=== PATIENT | female | born 1970 | race Caucasian/White ===

== ENCOUNTER 2017-07-13 05:22 | Emergency (ER) | payer OTHER, MEDICAID ==
[~2017-07-13] VITALS: Ht 165.1 cm; Wt 100.0 kg
[2017-07-13 05:58] VITALS: BP 113/69
== END 2017-07-13 08:22 | disposition left against medical advice (07) ==
LOC: ER 05:22
DX: Z53.21 Procedure and treatment not carried out due to patient leaving prior to being seen by health care provider (principal)